=== PATIENT | female | born 1970 | race American Indian/Alaskan Native ===

== ENCOUNTER 2019-01-20 11:42 | Outpatient (CLI) | payer MEDICARE ==
--- NOTE | 2019-01-20 15:08 | Mammography Report ---
DIGITAL DIAGNOSTIC MAMMOGRAM WITH CAD, 01/20/2019 INDICATION: History of left breast cancer treated with partial mastectomy and radiation in 2018. TECHNIQUE: Digital bilateral mammographic imaging was performed. This examination was interpreted with the benefit of Computer-aided Detection analysis. COMPARISON: 01/08/2018 FINDINGS: Breast Density: The breasts are heterogeneously dense, which may obscure small masses. There is no evidence of dominant mass, suspicious calcifications or architectural distortion in eithe r breast. Previously noted abnormal area of calcifications in the inferior left breast have been lionel radha. Postlumpectomy and radiation changes are now present in the left breast. IMPRESSION: No evidence of malignancy. Postlumpectomy/radiation change on the left. BI-RADS Category 2: Benign. Recommend routine screening mammography in one year A "normal" or negative report should not discourage follow up or biopsy of a clinically significant f inding. A written summary of these findings will be mailed to the patient. The patient will be entered into a mammography reporting system which will generate a reminder letter for the patient's next appointmen t at the appropriate interval. FURTHER INFORMATION: According to the [employer], yearly mammograms are recommend ed starting at age 40 and continuing as long as a woman is in good health. Breast MRI is recommended for women with an approximately 20-25% or greater lifetime risk of breast cancer, including women wi th a strong family history of breast or ovarian cancer and women who have been treated for Hodgkin's disease. Signer Name: Soheila Paiz MD Signed: 01/20/2019 3:03 PM Workstation Name: [id number]
== END 2019-01-20 11:43 | disposition home or self-care (01) ==
LOC: SPVWC 11:42
PROVIDERS: ATTEND Surgery
DX: R92.8 Other abnormal and inconclusive findings on diagnostic imaging of breast (principal); I10 Essential (primary) hypertension; E78.5 Hyperlipidemia, unspecified; Z85.3 Personal history of malignant neoplasm of breast
CPT/HCPCS: 77066

== ENCOUNTER 2019-07-28 10:25 | Outpatient (CLI) | payer MEDICARE ==
--- NOTE | 2019-07-28 11:39 | Mammography Report ---
DIGITAL DIAGNOSTIC MAMMOGRAM WITH CAD, 07/28/2019 INDICATION: Left breast cancer status post partial mastectomy 04/28/2018 with subsequent radiation th erapy. TECHNIQUE: Digital left mammographic imaging was performed. This examination was interpreted with the benefit of Computer-aided Detection analysis. COMPARISON: 01/20/2019 FINDINGS: Breast Density: The breast is heterogeneously dense, which may obscure small masses. There is no evid ence of dominant mass, suspicious calcifications or architectural distortion in the left breast. Cent ral posterior postsurgical scar. Scattered benign calcifications. Moderate skin thickening of the hector ast. IMPRESSION: No mammographic evidence of malignancy. Benign posttreatment changes. Follow up recommendation: Routine yearly BI-RADS Category 2: Benign. A "normal" or negative report should not discourage follow up or biopsy of a clinically significant f inding. A written summary of these findings will be mailed to the patient. The patient will be entered into a mammography reporting system which will generate a reminder letter for the patient's next appointmen t at the appropriate interval. According to the [employer], yearly mammograms are recommended starting at age 40 and continuing as long as a woman is in good health. Breast MRI is recommended for women with an noe roximately 20-25% or greater lifetime risk of breast cancer, including women with a strong family his tory of breast or ovarian cancer and women who have been treated for Hodgkin's disease. Signer Name: Rai Hsu MD Signed: 07/28/2019 11:35 AM Workstation Name: [id number]
== END 2019-07-28 10:26 | disposition home or self-care (01) ==
LOC: SPVWC 10:25
PROVIDERS: ATTEND Surgery
DX: C50.912 Malignant neoplasm of unspecified site of left female breast (principal); Z90.12 Acquired absence of left breast and nipple; N64.89 Other specified disorders of breast

== ENCOUNTER 2020-01-26 11:35 | Outpatient (CLI) | payer MEDICARE ==
--- NOTE | 2020-01-26 12:28 | Mammography Report ---
DIGITAL DIAGNOSTIC MAMMOGRAM WITH CAD, 01/26/2020 INDICATION: History of left breast carcinoma TECHNIQUE: Digital bilateral mammographic imaging was performed. This examination was interpreted with the benefit of Computer-aided Detection analysis. COMPARISON: 01/08/2018, 02/24/2018, 07/28/2019 FINDINGS: Breast Density: The breasts are heterogeneously dense, which may obscure small masses. There is no evidence of dominant mass, suspicious calcifications or architectural distortion in eithe r breast. Postlumpectomy and radiation changes are noted in the inferior left breast not appreciably changed from the most recent mammogram of 07/28/2019. Overall, the mammogram is unchanged. IMPRESSION: No evidence of malignancy. Follow up recommendation: Routine yearly BI-RADS Category 2: Benign. A "normal" or negative report should not discourage follow up or biopsy of a clinically significant f inding. A written summary of these findings will be mailed to the patient. The patient will be entered into a mammography reporting system which will generate a reminder letter for the patient's next appointmen t at the appropriate interval. According to the [employer], yearly mammograms are recommended starting at age 40 and continuing as long as a woman is in good health. Breast MRI is recommended for women with an noe roximately 20-25% or greater lifetime risk of breast cancer, including women with a strong family his tory of breast or ovarian cancer and women who have been treated for Hodgkin's disease. Signer Name: Soheila Paiz MD Signed: 01/26/2020 12:23 PM Workstation Name: [id number]
== END 2020-01-26 11:36 | disposition home or self-care (01) ==
LOC: SPVWC 11:35
PROVIDERS: ATTEND Surgery
DX: C50.512 Malignant neoplasm of lower-outer quadrant of left female breast (principal); Z85.3 Personal history of malignant neoplasm of breast
CPT/HCPCS: 77066

== ENCOUNTER 2021-02-10 10:23 | Outpatient (CLI) | payer MEDICARE | END 2021-02-10 10:24 | disposition home or self-care (01) | LOC: SPVWC 10:23 | PROVIDERS: ATTEND Surgery | DX: Z12.31 Encounter for screening mammogram for malignant neoplasm of breast (principal) | CPT/HCPCS: 77063; 77067 ==